=== PATIENT | female | born 1955 | race Caucasian/White ===

== ENCOUNTER 2019-10-03 07:46 | Day surgery (SDC) | payer OTHER ==
[~2019-10-03] VITALS: Ht 154.9 cm; Wt 81.6 kg
[2019-10-03] MEDS ORDERED: LIDOCAINE 2% 100 MG/5 ML UJET TP ONE (09:49)
[2019-10-03] MEDS ORDERED: fentaNYL 0.05 MG/ML VIAL ONE (09:49)
[2019-10-03] MEDS ORDERED: fentaNYL 0.05 MG/ML VIAL IVP ONE (11:20)
== END 2019-10-03 11:05 | disposition home or self-care (01) ==
LOC: MDS 07:46 → MMU 07:47 → MDS 11:05
PROVIDERS: ATTEND Internal Medicine Gastroenterology
DX: Z12.11 Encounter for screening for malignant neoplasm of colon (principal); D12.0 Benign neoplasm of cecum; E78.5 Hyperlipidemia, unspecified
CPT/HCPCS: 45385; J3010